=== PATIENT | female | born 1955 | race African-American/Black ===

== ENCOUNTER 2017-09-02 13:27 | Emergency (ER) | payer MEDICAID ==
[~2017-09-02] VITALS: Ht 162.6 cm; Wt 56.5 kg
[~2017-09-02 13:27] MED LIST: ASPI325T PO; HYDR-3580 PO; RANI150C PO
[2017-09-02 13:59] VITALS: BP 184/76; PULSE 75; RESP 16; TEMP 98.8; O2SAT 100
--- NOTE | 2017-09-02 14:07 | PD ---
HPI Chief Complaint: Musculoskeletal Complaint Time Seen by Provider: 14:07 Travel History International Travel<30 days: No Contact w/Intl Traveler<30days: No Traveled to known affect area: No History of Present Illness HPI 62-year-old -[place] female presents emergency department with 2 week history of worsening left-sided low back and hip pain with radiation to the foot. Patient has no previous history of sciatica in the past. She denies any specific injury or fall. Pain is described as burning and electric-like. It is worse with ambulation. It keeps her up at night. It is rated as a 9 out of 10. Nothing seems to make it better or worse. She denies bladder or bowel changes. No fever, chills, or other symptoms. She states no weakness but she feels the pain makes it difficult for her to walk. Patient has no known drug allergies. PFSH Past Medical History Arthritis: No Heart Rhythm Problems: No Cancer: No Cardiovascular Problems: Yes High Cholesterol: No Chest Pain: No Congestive Heart Failure: No Cerebrovascular Accident: No Endocrine: No Genitourinary: No Immune Disorder: No Musculoskeletal: No Neurologic: No Reproductive: No Respiratory: No Migraines: No Seizures: No ?: Unknown Past Surgical History Abdominal Surgery: No Cardiac Surgery: No Ear Surgery: No Endocrine Surgery: No Eye Surgery: No Genitourinary Surgery: No Gynecologic Surgery: Yes Oral Surgery: No Pacemaker: No Thoracic Surgery: No Social History Alcohol Use: No Tobacco Use: Yes Substance Use: No Allergies-Medications (Allergen,Severity, Reaction): Coded Allergies: No Known Allergies (Verified Adverse Reaction, Unknown, 09/02/17) Reported Meds & Prescriptions Reported Meds & Active Scripts Active Reported Lortab 7.5/325 Tab (Hydrocodone-Acetaminophen) 7.5 Mg/325 Mg Tab 1 Tab PO Q4- 6HPRN Aspirin 325 Mg Tab (Aspirin) 325 Mg Tab 325 Mg PO DAILYPRN Zantac (Ranitidine HCl) 150 Mg Cap 150 Mg PO DAILY Review of Systems Except as stated in HPI: all other systems reviewed are Neg General / Constitutional: No: Fever Eyes: No: Visual changes HENT: No: Headaches Cardiovascular: No: Chest Pain or Discomfort Respiratory: No: Shortness of Breath Gastrointestinal: No: Abdominal Pain Genitourinary: No: Dysuria Musculoskeletal: Positive: Arthralgias, Limited ROM, Pain Skin: No Rash Neurologic: No: Weakness Psychiatric: No: Depression Endocrine: No: Polydipsia Hematologic/Lymphatic: No: Easy Bruising Physical Exam Narrative GENERAL: Patient appears in mild to moderate distress. SKIN: Warm and dry. Normal color. Normal turgor. No rash. HEAD: Atraumatic. Normocephalic. EYES: Pupils equal and round. No scleral icterus. No injection or drainage. ENT: No nasal bleeding or discharge. Mucous membranes pink and moist. Pharynx is clear. Airway is patent. NECK: Trachea midline. Supple and nontender CARDIOVASCULAR: Regular rate and rhythm. RESPIRATORY: No accessory muscle use. Clear to auscultation. Breath sounds equal bilaterally. GASTROINTESTINAL: Abdomen soft, non-tender, nondistended. Hepatic and splenic margins not palpable. MUSCULOSKELETAL: Extremities without clubbing, cyanosis, or edema. No obvious deformities. Patient has pain in the left lower lumbar and sciatic notch consistent with sciatica. No weakness is noted in the lower extremities. Left hip has no pain with palpation at this time. No significant straight leg raise pain is noted. NEUROLOGICAL: Awake and alert. No obvious cranial nerve deficits. Motor grossly within normal limits. Five out of 5 muscle strength in the arms and legs. Normal speech. PSYCHIATRIC: Appropriate mood and affect; insight and judgment normal. Data Data Last Documented VS Vital Signs Date Time Temp Pulse Resp B/P (MAP) Pulse Ox O2 Delivery O2 Flow Rate FiO2 09/02/17 13:59 98.8 75 16 184/76 (112) 100 Orders Orders Hip, Uni(Ap&Lat) W Ap Pelvis (09/02/17 14:18) Spine, Lumbar Comp W/Obliq (09/02/17 14:18) Ketorolac Inj (Toradol Inj) (09/02/17 14:30) Prednisone (Deltasone) (09/02/17 14:30) [facility] Medical Decision Making Medical Screen Exam Complete: Yes Emergency Medical Condition: Yes Differential Diagnosis Left lumbar strain. Sciatica. Spinal stenosis Narrative Course Patient is medically stable at time of exam. X-rays of the lumbar spine and left hip and pelvis are ordered.. Patient is given Toradol 60 mg IM as well as 40 mg prednisone p.o. X-rays show no acute process. Patient will be continued on prednisone Dosepak as prescribed. Patient is given Flexeril 5 mg up to 3 times daily as needed muscle spasm #15. Patient given hydrocodone/acetaminophen 5/325, 1 every 6 hours as needed pain # 20 Patient to follow-up with local primary care physician. Patient can return if symptoms worsen as needed. Diagnosis Primary Impression: Left-sided low back pain with sciatica Qualified Codes: M54.42 - Lumbago with sciatica, left side Patient Instructions: General Instructions, Lower Back Exercises (ED), Lumbar Radiculopathy (ED) Additional Instructions: X-rays show no acute process. Patient will be continued on prednisone Dosepak as prescribed. Patient is given Flexeril 5 mg up to 3 times daily as needed muscle spasm #15. Patient given hydrocodone/acetaminophen 5/325, 1 every 6 hours as needed pain # 20 Patient to follow-up with local primary care physician. Patient can return if symptoms worsen as needed. Med/Other Pt SpecificInfo: Prescription(s) given Scripts Cyclobenzaprine (Flexeril) 5 Mg Tab 5 MG PO TID for Muscle Spasm, #15 TAB 0 Refills Prov: Maya Eaton MD 09/02/17 Hydrocodone-Acetaminophen (Hydrocodone-Acetaminophen) 5-325 mg Tab 1 TAB PO Q6H Y for PAIN, #20 TAB 0 Refills Prov: Maya Eaton MD 09/02/17 Prednisone (21) 10 mg tab Dose Pack (Prednisone (21) 10 mg tab Dose Pack) 10 Mg Pack 10 MG PO DIRECTED for Inflammation, #1 DSPK 0 Refills Prov: Maya Eaton MD 09/02/17 Disposition: 01 DISCHARGE HOME Condition: Stable Alok Williamson Sep 02, 2017 14:07
[2017-09-02] MEDS ORDERED: predniSONE 20 MG TAB PO ONE (14:30)
[2017-09-02] MEDS ORDERED: KETOROLAC TROMETHAMINE 60 MG/2 ML (IM) VIAL IM ONE (14:30)
[2017-09-02] MEDS ORDERED: HYDR-3516 PO (15:41)
[2017-09-02] MEDS ORDERED: CYCL5TAB PO (15:41)
[2017-09-02] MEDS ORDERED: PRED10PA PO (15:41)
--- NOTE | 2017-09-02 15:48 | RADRPT ---
EXAM DATE: 09/02/2017 3:26 PM EDT AGE/SEX: 62 years / Female INDICATIONS: Patient complains of Left hip pain. No known injury. CLINICAL DATA: This is the patient's initial encounter. Patient reports that signs and symptoms have been present for 1 day and indicates a pain score of 7/10. MEDICAL/SURGICAL HISTORY: None. None. COMPARISON: No prior exams available for comparison. FINDINGS: No definite fractures, or dislocations are identified. No definite lytic or sclerotic les ion is seen. The joint space is well maintained. CONCLUSION: Unremarkable study. Electronically signed by: Keyshawn Jaime MD 09/02/2017 3:46 PM EDT
--- NOTE | 2017-09-02 15:50 | RADRPT ---
EXAM DATE: 09/02/2017 3:28 PM EDT AGE/SEX: 62 years / Female INDICATIONS: Patient complains of lower back pain. No known injury. CLINICAL DATA: This is the patient's initial encounter. Patient reports that signs and symptoms have been present for 1 day and indicates a pain score of 7/10. MEDICAL/SURGICAL HISTORY: None. None. COMPARISON: No prior exams available for comparison. FINDINGS: No appreciable compression deformities, spondylolisthesis, or spondylolysis is seen. Slight degenerative changes are seen with mild osteophyte formation and hypertrophic change. Chronic athero sclerotic calcifications are seen without any definite aneurysmal dilatations for technique. CONCLUSION: Chronic changes. Electronically signed by: Keyshawn Jaime MD 09/02/2017 3:49 PM EDT
== END 2017-09-02 16:02 | disposition home or self-care (01) ==
LOC: NEPD 13:27
DX: M54.42 Lumbago with sciatica, left side (principal); Z72.0 Tobacco use
CPT/HCPCS: 72110; 73502; 96372; 99284; J1885; J7512

== ENCOUNTER 2017-09-17 10:30 | Emergency (ER) | payer MEDICAID ==
[~2017-09-17] VITALS: Ht 162.6 cm; Wt 60.0 kg
[~2017-09-17 10:30] MED LIST changes: +CYCL5TAB PO; +HYDR-3516 PO; +PRED10PA PO
[2017-09-17 10:34] VITALS: BP 159/67; PULSE 75; RESP 16; TEMP 97.8; O2SAT 100
[2017-09-17] MEDS ORDERED: WALKER/ADULT/FO1 MIS (11:21)
--- NOTE | 2017-09-17 11:22 | PD ---
HPI Chief Complaint: Injury Time Seen by Provider: 10:50 Travel History International Travel<30 days: No Contact w/Intl Traveler<30days: No Traveled to known affect area: No History of Present Illness HPI 52-year-old female presents to the emergency department with complaint of continued left low back pain, left hip pain, left knee pain, left foot pain, and now left ankle pain 3 weeks. She was seen here on September 02 and lumbar spine x-ray showed degenerative changes and left hip and pelvis x-ray was unremarkable. Says she has been told she has arthritis in her left knee. She was given Flexeril, [place], prednisone for her symptoms, which she said she did take and did help. She has followed up with her primary care provider and she has a appointment on September 25 with pain management. She said she did twist her left ankle yesterday and now it is painful. She denies fever, vomiting. Denies encopresis, incontinence, saddle anesthesias. Denies cancer, IV drug use. She is using a cane for assistance. She is ambulatory in the room with the limp to the left lower extremity. Rates pain 8/10. Pain is constant. Worse with movement and ambulation. Had some relief with previous prescriptions provided. Has not been taking any other medications or trying any other treatments to alleviate her symptoms. No known allergies. History of hypertension. Dr. Dunaway is PCP. Has no other medical complaints. No other modifying factors or associated signs and symptoms. PFSH Past Medical History Arthritis: No Heart Rhythm Problems: No Cancer: No Cardiovascular Problems: Yes High Cholesterol: No Chest Pain: No Congestive Heart Failure: No Cerebrovascular Accident: No Endocrine: No Genitourinary: No Hypertension: Yes Immune Disorder: No Musculoskeletal: No Neurologic: No Reproductive: No Respiratory: No Migraines: No Seizures: No ?: Not Past Surgical History Abdominal Surgery: No Cardiac Surgery: No Ear Surgery: No Endocrine Surgery: No Eye Surgery: No Genitourinary Surgery: No Gynecologic Surgery: Yes Oral Surgery: No Pacemaker: No Thoracic Surgery: No Other Surgery: Yes Social History Alcohol Use: No Tobacco Use: Yes (1/2 pack) Substance Use: No Allergies-Medications (Allergen,Severity, Reaction): Coded Allergies: No Known Allergies (Verified Adverse Reaction, Unknown, 09/02/17) Reported Meds & Prescriptions Reported Meds & Active Scripts Active Walker/Adult/Folding (Device) 1 Mis Mis Ea .XX DIRECTED Flexeril (Cyclobenzaprine HCl) 5 Mg Tab 5 Mg PO TID Hydrocodone-Acetaminophen 5-325 mg Tab 1 Tab PO Q6H PRN Prednisone (21) 10 mg tab Dose Pack (Prednisone) 10 Mg Pack 10 Mg PO DIRECTED Reported Hydrocodone/Acetaminophen 7.5 mg/325 mg 7.5 Mg/325 Mg Tab 1 Tab PO Q4-6HPRN Aspirin 325 Mg Tab (Aspirin) 325 Mg Tab 325 Mg PO DAILYPRN Zantac (Ranitidine HCl) 150 Mg Cap 150 Mg PO DAILY Review of Systems Except as stated in HPI: all other systems reviewed are Neg Physical Exam Narrative GENERAL: Well-nourished, well-developed elderly, female patient, in no acute distress; afebrile, nontoxic-appearing SKIN: Warm and dry. HEAD: Atraumatic. Normocephalic. EYES: Pupils equal and round. No scleral icterus. No injection or drainage. ENT: Mucosa pink and moist. Airway patent. NECK: Trachea midline. CARDIOVASCULAR: Regular rate. RESPIRATORY: No accessory muscle use. GASTROINTESTINAL: Flat. MUSCULOSKELETAL: Bilateral lower extremities supple and non-tense with 2+ pedal pulses and sensory intact; with full range of motion and 5/5 strength. 2 + DTRs bilaterally. Active dorsiflexion and extension of bilateral feet. Left straight leg raise is positive for low back pain. Ambulatory in room with assistance with cane and limp to the left lower extremity. Sitting up in bed at 90. Left ankle is without erythema, edema, ecchymosis; with full range of motion; with tenderness on palpation to the posterior aspect; no obvious deformity. No obvious deformities. No clubbing. No cyanosis. No edema. BACK: No obvious deformities. NEUROLOGICAL: Awake and alert. Oriented 3. No obvious cranial nerve deficits. Motor grossly within normal limits. Normal speech. Moves all extremities. 5/5 strength to all extremities. Sensory intact. PSYCHIATRIC: Appropriate mood and affect; insight and judgment normal. Data Data Last Documented VS Vital Signs Date Time Temp Pulse Resp B/P (MAP) Pulse Ox O2 Delivery O2 Flow Rate FiO2 09/17/17 10:34 97.8 75 16 159/67 (97) 100 Orders Orders Ankle, Complete (Fly0twt) (09/17/17 ) Splint Or Brace Apply/Monitor (09/17/17 11:49) Ed Discharge Order (09/17/17 11:49) [facility] Medical Decision Making Medical Screen Exam Complete: Yes Emergency Medical Condition: Yes Medical Record Reviewed: Yes Differential Diagnosis Low back pain with sciatica, diffuse pain of left leg, arthritis, ankle sprain, neuropathy Narrative Course 62-year-old female with continued left lower back pain, left hip pain, left knee pain, left foot pain, and now left ankle pain. She was evaluated on September 02 for the same complaint and left hip and pelvis x-ray was unremarkable and lumbar spine x-ray concluded degenerative changes. She is complaining of left ankle pain from an injury yesterday. I will x-ray the ankle to rule out any acute findings. She has a follow-up appointment with pain management on September 25. Her neuro exam is unremarkable. She is ambulatory in the room with assistance with her cane with a limp to the left lower extremity. She denies encopresis, incontinence, saddle anesthesias. Denies IV drug use or cancer. I will prescribe a walker for better support. 1147: Left ankle x-ray concluded: Ankle X-Ray 09/17/17 0000 Impressions: CONCLUSION: No acute left ankle abnormality is identified. There is tibial hardware related to prior ORIF. Discussed x-ray findings with the patient. Patient provided ankle stirrup splint for support. Instructed patient to follow-up with pain management as scheduled. Walker prescribed for home. Instructed patient to follow up with primary care provider. Patient verbalizes understanding and agreement with treatment plan. Patient is medically cleared and stable for discharge. Discussed reasons to return to the emergency department. Patient agrees with treatment plan. The patients vital signs are stable and the patient is stable for outpatient follow-up and treatment. Patient discharged home, stable and in no acute distress. Diagnosis Primary Impression: Diffuse pain in left lower extremity Additional Impression: Left ankle injury Qualified Codes: S99.912A - Unspecified injury of left ankle, initial encounter Referrals: Pain Management Primary Care Physician Patient Instructions: Ankle Sprain (ED), Arthritis (ED), General Instructions, Leg Pain (ED), Sciatica (ED) Additional Instructions: Tylenol or ibuprofen as directed and as needed for pain and inflammation Rest, ice, compress, and elevate extremity to decrease pain and inflammation Ankle Brace for support Walker/cane for support Avoid aggravating activity; increase activity as tolerated Follow-up with primary care provider Follow-up with pain management doctor scheduled appointment Follow-up with orthopedics Return to the emergency department immediately with worsening of symptoms Med/Other Pt SpecificInfo: Prescription(s) given Scripts Methocarbamol (Robaxin) 500 Mg Tab 500 MG PO QID Y for MUSCLE SPASM, #20 TAB 0 Refills Prov: Anaya Weaver 09/17/17 Ibuprofen (Ibuprofen) 600 Mg Tab 600 MG PO Q6H Y for PAIN, #20 TAB 0 Refills Prov: Anaya Weaver 09/17/17 Walker/Adult/Folding (Walker/Adult/Folding) 1 Mis Mis EA .XX DIRECTED, #1 0 Refills Prov: Anaya Weaver 09/17/17 Disposition: 01 DISCHARGE HOME Condition: Stable Anaya Weaver Sep 17, 2017 11:22
--- NOTE | 2017-09-17 11:45 | RADRPT ---
EXAM DATE: 09/17/2017 11:25 AM EDT AGE/SEX: 62 years / Female INDICATIONS: Evaluate left ankle for trauma, fell CLINICAL DATA: This is the patient's initial encounter. Patient reports that signs and symptoms have been present for 1 day and indicates a pain score of 0/10. MEDICAL/SURGICAL HISTORY: None. . Hardware placement left tibia COMPARISON: No prior exams available for comparison. FINDINGS: 4 views of the left ankle demonstrate no acute fracture or dislocation. There is an antegrade intrame dullary suha within the tibia with 3 distal and 2 proximal interlocking screws. There are old healed f ractures of the distal tibia and fibula with cortical thickening. Ankle mortise is intact. No soft ti ssue abnormality is identified. CONCLUSION: No acute left ankle abnormality is identified. There is tibial hardware related to prior ORIF. Electronically signed by: Dimitri Kelly MD 09/17/2017 11:44 AM EDT
[2017-09-17] MEDS ORDERED: IBUP-232 PO (11:55)
[2017-09-17] MEDS ORDERED: ROBA500T PO (11:55)
== END 2017-09-17 12:21 | disposition home or self-care (01) ==
LOC: NEPK 10:30
DX: S99.912A Unspecified injury of left ankle, initial encounter (principal); M79.662 Pain in left lower leg; I10 Essential (primary) hypertension; F17.200 Nicotine dependence, unspecified, uncomplicated; Z79.82 Long term (current) use of aspirin; Z79.899 Other long term (current) drug therapy; X50.1XXA Overexertion from prolonged static or awkward postures, initial encounter
CPT/HCPCS: 73610; 99283; L1906